=== PATIENT | female | born 1980 | race African-American/Black ===

== ENCOUNTER → 2019-01-22 | Outpatient (CLI) | payer BC ==
[2019-01-22 16:31] LABS: Basophils # (A) 0.1 k/uL (0-0.2); Basophils % (A) 1 %; Eosinophils # (A) 0.1 k/uL (0-0.7); Eosinophils % (A) 1 %; HCT 41.6 % (34.0-46.0); Lymphocytes # (A) 2.8 k/uL (1.0-4.8); Lymphocytes % (A) 22 %; MCH 27.4 pg (25.0-35.0); MCHC 31.2 g/dL (31.0-37.0); MCV 87.6 fL (80.0-100.0); Mean Platelet Volume 7.8; Monocytes # (A) 0.7 k/uL (0-1.0); Monocytes % (A) 6 %; Neutrophils # (A) 8.4 k/uL (1.3-7.7); Neutrophils % (A) 68 %; Platelet Count 291 k/uL (150-450); RBC 4.75 m/uL (3.80-5.40); RDW 14.6 % (11.5-15.5); WBC 12.4 k/uL (3.8-10.6)
[2019-01-22 23:49] LABS: ALT 17 U/L (8-44); AST 19 U/L (13-35); African American GFR (CKD) 128.3 (60.0-200.0); Albumin/Globulin Ratio 1.92 (1.60-3.17); Alkaline Phosphatase 60 U/L (41-126); BUN/Creat Ratio 17.14 Ratio (12.00-20.00); Calcium 9.5 mg/dL (8.7-10.3); Carbon Dioxide 27.1 mmol/L (21.6-31.8); Chloride 104 mmol/L (96-109); Chol/HDL Ratio 2.75; Cholesterol 184 mg/dL (0-200); Globulin 2.5 g/dL (1.6-3.3); Glucose 77 mg/dL (70-110); Potassium 4.1 mmol/L (3.5-5.5); Sodium 140 mmol/L (135-145); Total Bilirubin 0.9 mg/dL (0.3-1.2); Total Protein 7.3 g/dL (6.2-8.2); Triglycerides <50.0 mg/dL (0.0-149.0); VLDL Calculation 9.98 mg/dL (5.00-40.00)
== END | disposition home or self-care (01) ==
LOC: LABWHC1 15:40
PROVIDERS: ATTEND Internal Medicine
DX: E66.01 Morbid (severe) obesity due to excess calories (principal); R53.83 Other fatigue
CPT/HCPCS: 36415; 80053; 80061; 84443; 85025

== ENCOUNTER 2024-06-15 09:07 | Inpatient (IN) | payer OTHER ==
--- NOTE | 2024-06-15 09:48 | ED ---
Female Urogenital HPI - General Chief complaint: Vaginal Bleeding Stated complaint: Abd pain Time Seen by Provider: 06/15/24 09:09 Source: patient, EMS, RN notes reviewed Mode of arrival: EMS Limitations: no limitations - History of Present Illness Initial comments: This is a 44-year-old female who presents to the emergency department for pelvic pain. Patient was transferred to our facility from [facility] for an TALLOW MAKER consult. Patient states that she started developing pelvic pain yesterday. Last menstrual cycle was 06/06 through 06/10 and states that it was otherwise normal. Workup in the emergency department was concerning for a mass versus blood clot around the cervix causing the symptoms and she was transferred here due to a lack of TALLOW MAKER coverage at their facility. She does note nausea and vomiting associated with this as well as some bouts of vaginal bleeding despite her period being over. Additionally, she reports feeling a bulge in her vagina. She had a Pap smear about 2 years ago that she states was normal. Last pelvic exam was about 2 years ago as well. Prior to her visit at their facility today, she did go in yesterday as well. She was discharged home with Zofran, [employer] [place], and Keflex. States that she has been unable to keep down the [place] and when she is able to take it, it is not controlling her pain. Last Menstrual Period: 06/15/24 - Related Data Home Medications Medication Instructions Recorded Confirmed Cephalexin [Keflex] 500 mg PO DIRECTED 06/15/24 06/15/24 HYDROcodone/APAP 5-325MG [[place] 1 tab PO Q8H PRN 06/15/24 06/15/24 5-325] Ondansetron Odt [Zofran Odt] 4 mg PO Q8HR PRN 06/15/24 06/15/24 Allergies Allergy/AdvReac Type Severity Reaction Status Date / Time No Known Allergies Allergy Verified 06/15/24 15:21 Review of Systems ROS Statement: Those systems with pertinent positive or pertinent negative responses have been documented in the HPI. ROS Other: All systems not noted in ROS Statement are negative. Past Medical History Past Medical History: No Reported History History of Any Multi-Drug Resistant Organisms: None Reported Past Surgical History: No Surgical Hx Reported Additional Past Surgical History / Comment(s): Ectopic Past Psychological History: No Psychological Hx Reported Smoking Status: Former smoker Past Alcohol Use History: Rare Past Drug Use History: None Reported General Exam Limitations: no limitations General appearance: alert, in no apparent distress Head exam: Present: atraumatic, normocephalic, normal inspection Respiratory exam: Present: normal lung sounds bilaterally. Absent: respiratory distress, wheezes, rales, rhonchi, stridor Cardiovascular Exam: Present: regular rate, normal rhythm, normal heart sounds. Absent: systolic murmur, diastolic murmur, rubs, gallop, clicks GI/Abdominal exam: Present: soft, tenderness (Lower abdomen), normal bowel sounds. Absent: distended Neurological exam: Present: alert, oriented X3, CN II-XII intact Psychiatric exam: Present: normal affect, normal mood Skin exam: Present: warm, dry, intact, normal color. Absent: rash Course Vital Signs 06/15/24 06/15/24 09:08 12:45 Temperature 98.5 F Pulse Rate 76 83 Respiratory 18 18 Rate Blood Pressure 139/67 137/87 O2 Sat by Pulse 99 100 Oximetry Medical Decision Making - Medical Decision Making This is a 44-year-old female who presents to the emergency department for abdominal pain. Was pt. sent in by a medical professional or institution? @ -[facility] Did you speak to anyone other than the patient for history? @ -No Did you review nursing and triage notes? @ -Yes, and I agree, it is accurate with regards to the patient's symptoms. Were old charts reviewed? @ -Lab work from [facility]: Today: WBC - 22.5, lactic acid - 1.6 Yesterday: WBC - 19.6 Transvaginal ultrasound from yesterday demonstrating an enlarged uterus measuring 13.6 x 5.1 x 6.1 cm. There is a complex mass in the cervix measuring 6.6 x 4.8 x 5.2 cm. Endometrium is thickened at 1.4 cm with fluid in the endometrial canal. -Documentation from yesterday advised that they were unable to visualize the cervix. Today they advised that there was a large fullness in the posterior vagina that appears to be the cervix that is swollen with a scant amount of blood coming from the cervix. The mass is thought to feel fluid-filled as opposed to solid. Differential Diagnosis? @ -Differential Abdominal Pain Women: Appendicitis, Cholecystitis, diverticulosis, ischemic bowel, pancreatitis, hepatitis, UTI, gastroenteritis, AAA, incarcerated hernia, bowel obstruction, constipation, inflammatory bowel, hepatitis, peptic ulcer disease, splenic infarction, perforated viscus, vulvitis, ovarian torsion, PID, kidney stone, placenta abruption, this is not meant to be an all-inclusive list EKG interpreted by me (3pts min.)? @ -Not obtained X-rays interpreted by me (1pt min.)? @ -Not obtained CT interpreted by me (1pt min.)? @ -Not obtained U/S interpreted by me (1pt. min.)? @ -Not obtained What testing was considered but not performed? (CT, X-rays, U/S, labs)? Why? @ -None What meds were considered but not given? Why? @ -None Did you discuss the management of the patient with other professionals? @ -Yes, Dr. Andres, TALLOW MAKER, who advised that no emergent intervention is needed on their part and she could follow-up outpatient. However, if symptoms are not controlled she could be admitted to medicine with them on consult. Dr. Byers accepts the patient for admission to medicine. Did you reconcile home meds? @ -No Was smoking cessation discussed for >3mins.? @ -No Was critical care preformed (if so, how long)? @ -No Were there social determinants of health that impacted care today? How? (Homelessness, low income, unemployed, alcoholism, drug addiction, transportati on, low edu. Level, literacy, decrease access to med. care, chcf, rehab)? @ -No Was there de-escalation of care discussed even if they declined? (Discuss DNR or withdrawal of care, Hospice)? @ -No What co-morbidities impacted this encounter? (DM, HTN, Smoking, COPD, CAD, Cancer, CVA, Hep., AIDS, mental health diagnosis, sleep apnea, morbid obesity)? @ -None Was patient admitted / discharged? @ -Admitted. Lab work demonstrates leukocytosis with a white blood cell count of 25.4. This is increased from the lab work obtained at [facility] earlier today. This is also trending upwards from the lab work she had done at [facility] yesterday. CRP elevated at 7.4. Patient had already been taking [employer] [place] and Zofran at home. However, the [employer] [place] was not controlling her symptoms and she was still having difficulty tolerating p.o. intake despite the Zofran. Pain was only tolerable with IV medication. Given her intractable symptoms, she was admitted to medicine for further management. TALLOW MAKER listed as consult. Patient started on ceftriaxone and Flagyl. Case discussed with ED attending Dr. Hood. Undiagnosed new problem with uncertain prognosis? @ -None Drug Therapy requiring intensive monitoring for toxicity (Heparin, Nitro, Insulin, Cardizem)? @ -None Were any procedures done? @ -None Diagnosis/symptom? @ -Abnormal pelvic ultrasound, cervical mass, intractable pain, leukocytosis Acute, or Chronic, or Acute on Chronic? @ -Acute Uncomplicated (without systemic symptoms) or Complicated (systemic symptoms)? @ -Complicated Side effects of treatment? @ -None Exacerbation, Progression, or Severe Exacerbation] @ -Not applicable Poses a threat to life or bodily function? @ -Yes, patient unable to function with her pain - Lab Data Result diagrams: 06/15/24 10:10 06/15/24 10:10 Lab Results 06/15/24 06/15/24 06/15/24 Range/Units 10:10 10:10 10:10 WBC 25.4 H (3.8-10.6) k/uL RBC 4.29 (3.80-5.40) m/uL Hgb 12.3 (11.4-16.0) gm/dL Hct 37.4 (34.0-46.0) % MCV 87.1 (80.0-100.0) fL MCH 28.6 (25.0-35.0) pg MCHC 32.8 (31.0-37.0) g/dL RDW 14.4 (11.5-15.5) % Plt Count 241 (150-450) k/uL MPV 8.6 Neutrophils % 89 % Lymphocytes % 4 % Monocytes % 5 % Eosinophils % 1 % Basophils % 0 % Neutrophils # 22.5 H (1.3-7.7) k/uL Lymphocytes # 1.1 (1.0-4.8) k/uL Monocytes # 1.2 H (0-1.0) k/uL Eosinophils # 0.3 (0-0.7) k/uL Basophils # 0.1 (0-0.2) k/uL ESR 60 H (0-20) mm/Hr Sodium 134 L (137-145) mmol/L Potassium 3.5 (3.5-5.1) mmol/L Chloride 97 L (98-107) mmol/L Carbon Dioxide 29 (22-30) mmol/L Anion Gap 8 mmol/L BUN 7 (7-17) mg/dL Creatinine 0.53 (0.52-1.04) mg/dL Est GFR (CKD-EPI)AfAm >90 (>60 ml/min/1.73 sqM) Est GFR (CKD-EPI)NonAf >90 (>60 ml/min/1.73 sqM) Glucose 116 H (74-99) mg/dL Plasma Lactic Acid Dinesh 0.8 (0.7-2.0) mmol/L Calcium 8.7 (8.4-10.2) mg/dL Total Bilirubin 1.1 (0.2-1.3) mg/dL AST 18 (14-36) U/L ALT 17 (4-34) U/L Alkaline Phosphatase 59 (38-126) U/L C-Reactive Protein 7.4 H (<1.0) mg/dL Total Protein 7.0 (6.3-8.2) g/dL Albumin 4.1 (3.5-5.0) g/dL HCG, Qual Not Detected - Radiology Data Radiology results: report reviewed, image reviewed Disposition Clinical Impression: Abnormal pelvic ultrasound, Cervical mass, Intractable pain, Leukocytosis Disposition: ADMITTED IP TO THIS HOSP
[2024-06-15 10:17] LABS: Basophils # (A) 0.1 k/uL (0-0.2); Basophils % (A) 0 %; Eosinophils # (A) 0.3 k/uL (0-0.7); Eosinophils % (A) 1 %; HCT 37.4 % (34.0-46.0); HGB 12.3 gm/dL (11.4-16.0); Lymphocytes # (A) 1.1 k/uL (1.0-4.8); Lymphocytes % (A) 4 %; MCH 28.6 pg (25.0-35.0); MCHC 32.8 g/dL (31.0-37.0); MCV 87.1 fL (80.0-100.0); Mean Platelet Volume 8.6; Monocytes # (A) 1.2 k/uL (0-1.0); Monocytes % (A) 5 %; Neutrophils # (A) 22.5 k/uL (1.3-7.7); Neutrophils % (A) 89 %; Platelet Count 241 k/uL (150-450); RBC 4.29 m/uL (3.80-5.40); RDW 14.4 % (11.5-15.5); WBC 25.4 k/uL (3.8-10.6)
[2024-06-15] MEDS: SODIUM CHLORIDE 0.9% 1,000 ML IV STA (10:24)
[2024-06-15] MEDS: ONDANSETRON 4 MG/2 ML VIAL IVP STA (10:25)
[2024-06-15] MEDS: KETOROLAC 15 MG/ML 1 ML VIAL IVP STA ×2 (10:25→12:49)
[2024-06-15] MEDS: HYDROmorphone 1 MG/ML 1 ML SYRINGE IVP STA ×2 (10:25→12:49)
[2024-06-15 10:29] LABS: ALT 17 U/L (4-34); AST 18 U/L (14-36); African American GFR (CKD) >90 (>60 ml/min/1.73 sqM); Albumin 4.1 g/dL (3.5-5.0); Alkaline Phosphatase 59 U/L (38-126); Anion Gap 8 mmol/L; Blood Urea Nitrogen 7 mg/dL (7-17); C Reactive Protein 7.4 mg/dL (<1.0); Calcium 8.7 mg/dL (8.4-10.2); Carbon Dioxide 29 mmol/L (22-30); Chloride 97 mmol/L (98-107); Glucose 116 mg/dL (74-99); Non-African American GFR(CKD) >90 (>60 ml/min/1.73 sqM); Potassium 3.5 mmol/L (3.5-5.1); Sodium 134 mmol/L (137-145); Total Bilirubin 1.1 mg/dL (0.2-1.3)
[2024-06-15 11:17] LABS: HCG,Qualitative Serum Not Detected
[2024-06-15] MEDS ORDERED: HYDROmorphone 1 MG/ML 1 ML SYRINGE IVP PRN (13:09)
[2024-06-15] MEDS ORDERED: NALOXONE 0.4 MG/ML 1 ML VIAL IV PRN (13:09)
[2024-06-15] MEDS ORDERED: HYDROmorphone 0.5 MG/0.5 ML SYRINGE IVP PRN (13:09)
[2024-06-15] MEDS ORDERED: IBUPROFEN 400 MG TAB PO PRN (13:09)
[2024-06-15] MEDS: metroNIDAZOLE 500 MG TAB PO SCH (13:18)
[2024-06-15 13:45] LABS: Erythrocyte Sedimentation Rate 60 mm/Hr (0-20)
--- NOTE | 2024-06-15 16:34 | US ---
EXAMINATION TYPE: US pelvis complete transvag DATE OF EXAM: 06/15/2024 COMPARISON: NONE CLINICAL INDICATION: Female, 44 years old with history of pelvic/cervical mass, pelvic pain; Transfer from [facility]. Pain, bleeding. Hx ectopic with ovary removed- patient doesn't remember which ovary TECHNIQUE: Transvaginal (TV) and Transabdominal (TA) . Transabdominal grayscale sonographic images of the pelvis were acquired. Doppler imaging: Not performed. FINDINGS: Date of LMP: 06/03/2024, EXAM MEASUREMENTS: Uterus: 14.0 x 6.7 x 5.4 cm cm Endometrial Stripe: 1.1 cm 1. Uterus: Anteverted Enlarged in size. Not well seen transvaginally due to penetration. 2. Endometrium: Appears complex extending into cervix. 3. Right Ovary: Not seen 4. Left Ovary: Not seen 5. Bilateral Adnexa: no free fluid 6. Posterior cul-de-sac: no free fluid 7. Cervix- Cervical canal appears enlarged and complex with moving internal echoes. Question large cl ot extending into endometrial canal. IMPRESSION: 1. Complex endometrium and extending into the cervical canal. Possibly old blood products. Clinical correlation advised. 2. Hypoechoic mass possibly represent fibroid. Consider complete evaluation with pelvic MRI with IV contrast. [facility], , 06/15/2024 4:31 PM
[2024-06-15] MEDS: KETOROLAC 15 MG/ML 1 ML VIAL IVP PRN (20:50)
--- NOTE | 2024-06-16 10:53 | P.HPIM ---
History of Present Illness H&P Date: 06/16/24 Rosetta Duron is a 44-year-old female patient who presented with complaints of abnormal bleeding and cervical pelvic pain. Patient initially presented to [facility] and was transferred to [facility] for HAND II CUTTER consult. Patient reports her last menstrual cycle completed 06/06 through 06/10. Patient reports after cycle she started to have cramping with large blood clots. Patient denies any previous cycles like this. Patient does have a past medical history of ectopic and ex-smoker. Transvaginal ultrasound completed showing complex endometrioma next the ending into the cervical canal possibly old blood product hypoechoic mass possibly represent fibroid consider complete evaluation with pelvic MRI. Patient's vitals revealed temp 100.2, heart rate 108, respiratory rate 16, blood pressure 108/64. Lab work completed showing white blood cell 25.4, hemoglobin 12.3, ESR 60 test negative. At this time patient will be admitted HAND II CUTTER consult placed. Will also start patient on antibiotics due to elevated white blood count and febrile. Urine and blood cultures will be ordered. Infectious disease services consulted Review of Systems Please refer to HPI otherwise unremarkable Past Medical History Past Medical History: No Reported History Additional Past Medical History / Comment(s): Lower back pain History of Any Multi-Drug Resistant Organisms: None Reported Past Surgical History: No Surgical Hx Reported Additional Past Surgical History / Comment(s): Ectopic Past Anesthesia/Blood Transfusion Reactions: No Reported Reaction Past Psychological History: No Psychological Hx Reported Smoking Status: Former smoker Past Alcohol Use History: Rare Past Drug Use History: None Reported Medications and Allergies Home Medications Medication Instructions Recorded Confirmed Type Cephalexin [Keflex] 500 mg PO DIRECTED 06/15/24 06/15/24 History HYDROcodone/APAP 5-325MG [[place] 1 tab PO Q8H PRN 06/15/24 06/15/24 History 5-325] Ondansetron Odt [Zofran Odt] 4 mg PO Q8HR PRN 06/15/24 06/15/24 History Allergies Allergy/AdvReac Type Severity Reaction Status Date / Time No Known Allergies Allergy Verified 06/15/24 15:21 Physical Exam Vitals: Vital Signs Temp Pulse Pulse Resp BP BP Pulse Ox 06/16/24 07:59 99.5 F 100 17 105/64 95 06/16/24 01:39 100.2 F H 108 H 16 108/64 98 06/15/24 19:43 99.0 F 69 16 128/68 92 L 06/15/24 17:42 78 18 136/64 99 06/15/24 12:45 83 18 137/87 100 Intake and Output 06/15/24 06/16/24 06/16/24 22:59 06:59 14:59 Other: Voiding Method Toilet # Voids 1 Weight 131.542 kg Head normocephalic Neck supple Lungs clear to auscultation bilaterally no wheezing or crackles Heart regular rate and rhythm S1-S2, no rub or gallop Abdomen is soft nontender nondistended positive bowel sounds no hepatosplenomegaly Extremities no edema Neuro alert and orientated to 3 Results CBC & Chem 7: 06/15/24 10:10 06/15/24 10:10 Labs: Abnormal Lab Results - Last 24 Hours (Table) 06/15/24 Range/Units 10:10 ESR 60 H (0-20) mm/Hr Thrombosis Risk Factor Assmnt - Choose All That Apply Any of the Below Risk Factors Present?: Yes Each Factor Represents 1 point: Age 41-60 years, Obesity (BMI >25) Other Risk Factors: No Other congenital or acquired thrombophilia - If yes, enter type in comment: No Thrombosis Risk Factor Assessment Total Risk Factor Score: 2 Thrombosis Risk Factor Assessment Level: Low Risk Assessment and Plan Assessment: 1. Pelvic pain and abnormal bleeding with possible cervical mass. 2. Leukocytosis 3. History of ectopic 4. Ex-smoker DVT prophylaxis SCDs due to bleeding. GI prophylax Protonix HAND II CUTTER and infectious disease services consulted Patient started on antibiotics Urine and blood cultures ordered Repeat labs ordered Time with Patient: Greater than 30 (Greater than 60% of the total time spent in counseling and coordination of care)
--- NOTE | 2024-06-16 13:53 | P.OBCN ---
History of Present Illness Consult date: 06/16/24 Reason for consult: pelvic pain, other (abnormal US) Chief complaint: vaginal bleeding and pelvic pain History of present illness: 44-year-old -0-1-2 presented to [facility] 2 times for vaginal bleeding and severe pelvic pain. They thought maybe she had a mass or a blood clot in her cervix and sent her home with Keflex and [place]. The [place] was not controlling her pain and she returned to the emergency room where she was transferred to [facility]. I did get another ultrasound here since I did not have the images to look at the other facility. She has complex blood within her endometrium and extending to the level of the cervix. I do believe she has had a blood clot there since her period which was 06/06-06/10 and now it is starting to break up and come out. The smell of the blood is foul and she has a white count of 25 and did have a fever of 100.2. She is currently on Rocephin and Flagyl IV. I would keep the patient on the antibiotics for 24 hours and then take her to the operating room for a D&C hysteroscopy. I discussed with the patient that she does have an enlarged uterus and could have some kind of endometrial polyp, endometritis, endometrial hyperplasia, or endometrial cancer. Review of Systems All systems: negative Constitutional: Denies chills, Denies fever Eyes: denies blurred vision, denies pain Ears, nose, mouth and throat: Denies headache, Denies sore throat Cardiovascular: Denies chest pain, Denies shortness of breath Respiratory: Denies cough Gastrointestinal: Denies abdominal pain, Denies diarrhea, Denies nausea, Denies vomiting Genitourinary: Denies dysuria, Denies hematuria Musculoskeletal: Denies myalgias Integumentary: Denies pruritus, Denies rash Neurological: Denies numbness, Denies weakness Psychiatric: Denies anxiety, Denies depression Endocrine: Denies fatigue, Denies weight change Past Medical History Past Medical History: No Reported History Additional Past Medical History / Comment(s): Lower back pain History of Any Multi-Drug Resistant Organisms: None Reported Past Surgical History: No Surgical Hx Reported Additional Past Surgical History / Comment(s): Ectopic Past Anesthesia/Blood Transfusion Reactions: No Reported Reaction Past Psychological History: No Psychological Hx Reported Smoking Status: Former smoker Past Alcohol Use History: Rare Past Drug Use History: None Reported Medications and Allergies Home Medications Medication Instructions Recorded Confirmed Type Cephalexin [Keflex] 500 mg PO DIRECTED 06/15/24 06/15/24 History HYDROcodone/APAP 5-325MG [[place] 1 tab PO Q8H PRN 06/15/24 06/15/24 History 5-325] Ondansetron Odt [Zofran Odt] 4 mg PO Q8HR PRN 06/15/24 06/15/24 History Allergies Allergy/AdvReac Type Severity Reaction Status Date / Time No Known Allergies Allergy Verified 06/15/24 15:21 Exam Osteopathic Statement: *. No significant issues noted on an osteopathic structural exam other than those noted in the History and Physical/Consult. Vital Signs Temp Pulse Pulse Resp BP BP Pulse Ox 06/16/24 13:19 98.1 F 94 17 100/62 98 06/16/24 07:59 99.5 F 100 17 105/64 95 06/16/24 01:39 100.2 F H 108 H 16 108/64 98 06/15/24 19:43 99.0 F 69 16 128/68 92 L 06/15/24 17:42 78 18 136/64 99 Intake and Output 06/15/24 06/16/24 06/16/24 22:59 06:59 14:59 Other: Voiding Method Toilet # Voids 1 Weight 131.542 kg Heart: Regular rate and rhythm Lungs: Clear to auscultation bilaterally Abdomen: Soft, nontender Extremities: Negative Homans sign Results Result Diagrams: 06/15/24 10:10 06/15/24 10:10 Assessment and Plan (1) Pelvic pain Current Visit: Yes Status: Acute Code(s): R10.2 - PELVIC AND PERINEAL PAIN SNOMED Code(s): 38520907 (2) Abnormal pelvic ultrasound Current Visit: Yes Status: Acute Code(s): R93.89 - ABNORMAL FINDINGS ON DX IMAGING OF OTH BODY STRUCTURES SNOMED Code(s): 305903802 (3) Leukocytosis Current Visit: Yes Status: Acute Code(s): D72.829 - ELEVATED WHITE BLOOD CELL COUNT, UNSPECIFIED SNOMED Code(s): 576779928 (4) Thickened endometrium Current Visit: Yes Status: Acute Code(s): R93.89 - ABNORMAL FINDINGS ON DX IMAGING OF OTH BODY STRUCTURES SNOMED Code(s): 252298393 Plan: 1. N.p.o. after midnight 2. D&C hysteroscopy after a few doses of IV antibiotics.
[2024-06-17 00:43] LABS: Mucus,Urine Many /hpf; RBC,Urine >182 /hpf (0-5); WBC,Urine 45 /hpf (0-5)
[2024-06-17 00:47] LABS: Appearance,Urine Bloody (Clear); Color,Urine Red
--- NOTE | 2024-06-17 08:17 | P.CONS ---
History of Present Illness - Reason for Consult Consult date: 06/16/24 Leukocytosis, pelvic mass Requesting physician: Hellen Byers - Chief Complaint Lower abdominal pain x 1 day - History of Present Illness Patient is a 44-year-old -[place] female with no significant past medical history presenting to the hospital, for evaluation of lower abdominal pain that started the day before presentation to the hospital describing the pain to be sharp moderate intensity without any radiation did have some nausea but no vomiting patient denies having any burning or frequency of urine no diarrhea or constipation and the patient did have some vaginal bleeding with a workup done at [facility] there was concern for mass versus blood clot around the cervix for the patient was transferred to [facility] on presentation to the hospital patient was afebrile she did have 1 low-grade fever 100.2 at 1 AM patient was mildly tachycardic but not hypotensive or hypoxic and no need for supplemental oxygen she did have a white count 25.4 with a left shift creatinine 0.53 urine has been mostly bloody with 45 WBC blood culture has been obtained patient did have a pelvic ultrasound mention intermittent basis complex extending into the cervix no free fluid patient has been started on Rocephin and Flagyl infectious disease was consulted concerning for leukocytosis and pelvic mass Review of Systems Positive point and negatives has been mentioned in the HPI, complete review of systems was performed and all other systems are negative Past Medical History Past Medical History: No Reported History Additional Past Medical History / Comment(s): Lower back pain History of Any Multi-Drug Resistant Organisms: None Reported Past Surgical History: No Surgical Hx Reported Additional Past Surgical History / Comment(s): Ectopic Past Anesthesia/Blood Transfusion Reactions: No Reported Reaction Past Psychological History: No Psychological Hx Reported Smoking Status: Former smoker Past Alcohol Use History: Rare Past Drug Use History: None Reported Medications and Allergies Home Medications Medication Instructions Recorded Confirmed Type Cephalexin [Keflex] 500 mg PO DIRECTED 06/15/24 06/15/24 History HYDROcodone/APAP 5-325MG [[place] 1 tab PO Q8H PRN 06/15/24 06/15/24 History 5-325] Ondansetron Odt [Zofran Odt] 4 mg PO Q8HR PRN 06/15/24 06/15/24 History Allergies Allergy/AdvReac Type Severity Reaction Status Date / Time No Known Allergies Allergy Verified 02/15/25 15:21 Physical Exam Vitals: Vital Signs Temp Pulse Pulse Resp BP BP Pulse Ox 06/16/24 13:19 98.1 F 94 17 100/62 98 06/16/24 07:59 99.5 F 100 17 105/64 95 06/16/24 01:39 100.2 F H 108 H 16 108/64 98 06/15/24 19:43 99.0 F 69 16 128/68 92 L 06/15/24 17:42 78 18 136/64 99 Intake and Output 06/15/24 06/16/24 06/16/24 22:59 06:59 14:59 Other: Voiding Method Toilet # Voids 1 Weight 131.542 kg GENERAL DESCRIPTION: Middle-aged female lying in bed, no distress. No tachypnea or accessory muscle of respiration use. HEENT: Shows Pallor , no scleral icterus. Oral mucous membrane is dry. No pha ryngeal erythema or thrush NECK: Trachea central, no thyromegaly. LUNGS: Unlabored breathing. Clear to auscultation anteriorly. No wheeze or crackle. HEART: S1, S2, regular rate and rhythm. No loud murmur ABDOMEN: Soft, no tenderness , EXTREMITIES: No edema of feet. SKIN: No rash, no masses palpable. NEUROLOGICAL: The patient is awake, alert, oriented x3, mood and affect normal. Results CBC & Chem 7: 06/15/24 10:10 06/15/24 10:10 Assessment and Plan (1) SIRS (systemic inflammatory response syndrome) Current Visit: Yes Status: Acute Code(s): R65.10 - SIRS OF NON-INFECTIOUS ORIGIN W/O ACUTE ORGAN DYSFUNCTION SNOMED Code(s): 399786225 (2) Abnormal pelvic ultrasound Current Visit: Yes Status: Acute Code(s): R93.89 - ABNORMAL FINDINGS ON DX IMAGING OF OTH BODY STRUCTURES SNOMED Code(s): 014868872 (3) Cervical mass Current Visit: Yes Status: Acute Code(s): N88.8 - OTHER SPECIFIED NONINFLAMM ATORY DISORDERS OF CERVIX UTERI SNOMED Code(s): 376508377 (4) Leukocytosis Current Visit: Yes Status: Acute Code(s): D72.829 - ELEVATED WHITE BLOOD CELL COUNT, UNSPECIFIED SNOMED Code(s): 088896831 Plan: 1patient with cirrhosis in this patient who did have low-grade fever tachycardia elevated white count source is pelvic in this patient who has predominantly pelvic pain and there was concern for abnormal pelvic ultrasound possible mass versus hematoma with elevated white count could be reactive or secondary to infectious etiology and likely enteric gram-negative. 2patient will be treated with Rocephin 2 g daily and Flagyl empirically. 3await possible D&C by OB that will help with confirming the diagnosis Question concern answered We will follow on clinical condition and cultures to further adjust medication if needed Thank you for this consultation we will follow the patient along with you Dictation was produced using [employer] dictation software. please excuse any grammatical, word or spelling errors. Time with Patient: Greater than 30
[2024-06-17] MEDS: PANTOPRAZOLE 40 MG TABLET PO SCH (08:41)
[2024-06-17 08:57] LABS: Basophils % (A) 0 %; Eosinophils # (A) 0.1 k/uL (0-0.7); Eosinophils % (A) 1 %; HCT 34.4 % (34.0-46.0); HGB 10.9 gm/dL (11.4-16.0); Hypochromasia Slight; Lymphocytes # (A) 2.4 k/uL (1.0-4.8); Lymphocytes % (A) 14 %; MCHC 31.7 g/dL (31.0-37.0); MCV 88.4 fL (80.0-100.0); Mean Platelet Volume 9.1; Monocytes # (A) 1.3 k/uL (0-1.0); Monocytes % (A) 8 %; Neutrophils # (A) 12.3 k/uL (1.3-7.7); Neutrophils % (A) 74 %; Platelet Count 203 k/uL (150-450); RBC 3.89 m/uL (3.80-5.40); RDW 14.6 % (11.5-15.5); WBC 16.5 k/uL (3.8-10.6)
[2024-06-17 09:07] LABS: ALT 23 U/L (4-34); AST 22 U/L (14-36); African American GFR (CKD) >90 (>60 ml/min/1.73 sqM); Albumin 3.2 g/dL (3.5-5.0); Albumin/Globulin Ratio 1.2; Alkaline Phosphatase 73 U/L (38-126); Anion Gap 7 mmol/L; Blood Urea Nitrogen 10 mg/dL (7-17); Calcium 8.6 mg/dL (8.4-10.2); Carbon Dioxide 30 mmol/L (22-30); Chloride 101 mmol/L (98-107); Globulin 2.7 g/dL; Glucose 100 mg/dL (74-99); Non-African American GFR(CKD) >90 (>60 ml/min/1.73 sqM); Potassium 3.5 mmol/L (3.5-5.1); Sodium 138 mmol/L (137-145); Total Bilirubin 0.8 mg/dL (0.2-1.3); Total Protein 5.9 g/dL (6.3-8.2)
[2024-06-17] MEDS: IV FLUID CONTINUATION 1,000 ML IV ONE (11:09)
[2024-06-17] MEDS: ONDANSETRON 4 MG/2 ML VIAL IVP PRN (11:17)
[2024-06-17] MEDS: DEXAMETHASONE SOD PHOSPHATE 4 MG/ML 1 ML VIAL IVP STA (11:18)
[2024-06-17] MEDS ORDERED: LIDOCAINE 1% INJ 10MG/ML (20 ML MDV) ONE (11:39)
[2024-06-17] MEDS ORDERED: PROPOFOL 10 MG/ML 20 ML VIAL IV ONE (11:39)
[2024-06-17] MEDS ORDERED: SUCCINYLCHOLINE CHLORIDE 200 MG/10 ML VIAL IV ONE (11:39)
[2024-06-17] MEDS ORDERED: MIDAZOLAM 2 MG/2 ML VIAL ONE (11:39)
[2024-06-17] MEDS ORDERED: KETOROLAC 30 MG/ML 1 ML VIAL ONE (11:39)
[2024-06-17] MEDS ORDERED: fentaNYL (PF) 50 MCG/ML 2 ML AMP ONE (11:39)
--- NOTE | 2024-06-17 12:11 | P.OP ---
Date of Procedure: 06/17/24 Preoperative Diagnosis: 1. abnormal US-thickened endometrium 2. pelvic pain Postoperative Diagnosis: same Procedure(s) Performed: D&C Anesthesia: KRISTELA Surgeon: Flaquita Andres Estimated Blood Loss (ml): 4 IV fluids (ml): 500 Urine output (ml): 100 Pathology: other (endometrial currettings) Condition: stable Disposition: floor Operative Findings: uterus sounded to 10 cm. The cervix was dilated to 1cm and had some white nodular tissue on it. Description of Procedure: Taken to the operating room general anesthesia was obtained without difficulty. She is prepped draped normal sterile fashion dorsolithotomy position, legs placed in the Carlos stirrups. Bladder was drained of all urine. Weighted speculum placed in vagina the anterior lip of the cervix was grasped with a single-tooth tenaculum. The cervix appeared to have some nodules and white tissue on it. The cervix was found to be dilated 1 cm. The uterus sounded to 10 cm. Sharp curette was gently used to obtain endometrial curettings. Blood and tissue were removed and sent to pathology. There were no blood clots noted. All instruments were removed from the vagina. Patient tolerated the procedure well. Sponge and instrument counts correct x 2. She was taken to recovery in stable condition.
--- NOTE | 2024-06-17 17:13 | P.PN ---
Subjective Progress Note Date: 06/17/24 Principal diagnosis: Reason for follow-up is leukocytosis/question of endometritis Patient is a 44-year-old -[place] female with no significant past medical history presenting to the hospital, for evaluation of lower abdominal pain along with heavy vaginal bleeding and did have a low-grade fever elevated white count prompted this consultation. Patient is status post D&C did not mention any purulent drainage or bleeding. On today's evaluation that is 06/16/2024, Patient did have resolution of her fever and is afebrile today patient is currently on room air and denies having any shortness of breath, the patient denies any chest pain or cough, the patient denies any nausea vomiting did not have any abdominal pain and no diarrhea. Patient white count is down to 16.5 creatinine 0.61 cultures are currently pending Objective - Vital Signs Vital signs: Vital Signs Temp 98.3 F 06/17/24 07:37 Pulse 71 06/17/24 07:37 Resp 18 06/17/24 07:37 BP 110/65 06/17/24 07:37 Pulse Ox 98 06/17/24 07:37 FiO2 Intake & Output 06/16/24 06/17/24 06/17/24 18:59 06:59 18:59 Intake Total 1080 Balance 1080 Intake: Oral 1080 Other: Voiding Method Toilet Toilet # Voids 3 3 - Exam GENERAL DESCRIPTION: Middle-age female up in bed in no distress RESPIRATORY SYSTEM: Unlabored breathing , decreased breath sounds at bases HEART: S1 S2 regular rate and rhythm , ABDOMEN: Soft , no tenderness EXTREMITIES: No edema feet - Labs CBC & Chem 7: 06/17/24 07:58 06/17/24 07:58 Labs: Abnormal Lab Results - Last 24 Hours (Table) 06/17/24 06/17/24 06/17/24 Range/Units 00:10 07:58 07:58 WBC 16.5 H (3.8-10.6) k/uL Hgb 10.9 L (11.4-16.0) gm/dL Neutrophils # 12.3 H (1.3-7.7) k/uL Monocytes # 1.3 H (0-1.0) k/uL Glucose 100 H (74-99) mg/dL Total Protein 5.9 L (6.3-8.2) g/dL Albumin 3.2 L (3.5-5.0) g/dL Urine Appearance Bloody H (Clear) Urine RBC >182 H (0-5) /hpf Urine WBC 45 H (0-5) /hpf Urine WBC Clumps Many H (None) /hpf Urine Mucus Many H (None) /hpf Microbiology - Last 24 Hours (Table) 06/15/24 17:35 Blood Culture - Preliminary Blood Assessment and Plan (1) SIRS (systemic inflammatory response syndrome) Current Visit: Yes Status: Acute Code(s): R65.10 - SIRS OF NON-INFECTIOUS ORIGIN W/O ACUTE ORGAN DYSFUNCTION SNOMED Code(s): 268190570 (2) Abnormal pelvic ultrasound Current Visit: Yes Status: Acute Code(s): R93.89 - ABNORMAL FINDINGS ON DX IMAGING OF OTH BODY STRUCTURES SNOMED Code(s): 769011378 (3) Cervical mass Current Visit: Yes Status: Acute Code(s): N88.8 - OTHER SPECIFIED NONINFLAMMATORY DISORDERS OF CERVIX UTERI SNOMED Code(s): 513919424 (4) Leukocytosis Current Visit: Yes Status: Acute Code(s): D72.829 - ELEVATED WHITE BLOOD CELL COUNT, UNSPECIFIED SNOMED Code(s): 806550677 Plan: 1patient with cirrhosis in this patient who did have low-grade fever tachycardia elevated white count source is pelvic in this patient who has predominantly pelvic pain and there was concern for abnormal pelvic ultrasound possible mass versus hematoma with elevated white count could be reactive or secondary to infectious etiology and likely enteric gram-negative. 2patient is status post D&C did not mention any purulent drainage or any culture. 3patient did have resolution of fever white count is trending down continue with Rocephin and Flagyl will transition to oral antibiotics on discharge Dictation was produced using [employer] dictation software. please excuse any grammatical, word or spelling errors.
--- NOTE | 2024-06-17 19:46 | P.PN ---
Subjective Progress Note Date: 06/17/24 Rosetta Duron is a 44-year-old female patient who presented with complaints of abnormal bleeding and cervical pelvic pain. Patient initially presented to [facility] and was transferred to [facility] for TIRE RETREADER consult. Patient reports her last menstrual cycle completed 06/06 through 06/10. Patient reports after cycle she started to have cramping with large blood clots. Patient denies any previous cycles like this. Patient does have a past medical history of ectopic and ex-smoker. Transvaginal ultrasound completed showing complex endometrioma next the ending into the cervical canal possibly old blood product hypoechoic mass possibly represent fibroid consider complete evaluation with pelvic MRI. Patient's vitals revealed temp 100.2, heart rate 108, respiratory rate 16, blood pressure 108/64. Lab work completed showing white blood cell 25.4, hemoglobin 12.3, ESR 60 test negative. At this time patient will be admitted TIRE RETREADER consult placed. Will also start patient on antibiotics due to elevated white blood count and febrile. Urine and blood cultures will be ordered. Infectious disease services consulted On 06/17/2024 patient was seen and examined on the medical floor she is alert and oriented x 3 in no apparent distress there is no fever or chills no headache or dizziness no chest pain no shortness of breath no cough no nausea or vomiting no abdominal pain no diarrhea and no urinary symptoms. She underwent D&C this morning. Remains on IV antibiotics awaiting culture results Objective - Vital Signs Vital signs: Vital Signs Temp 97 F L 06/17/24 12:05 Pulse 75 06/17/24 12:45 Resp 14 06/17/24 12:45 BP 131/74 06/17/24 12:45 Pulse Ox 98 06/17/24 12:45 FiO2 Intake & Output 06/16/24 06/17/24 06/17/24 18:59 06:59 18:59 Intake Total 1080 500 Output Total 104 Balance 1080 396 Weight 131.542 kg Intake: IV 500 Oral 1080 Output: Urine 100 Estimated Blood Loss 4 Other: Voiding Method Toilet Toilet # Voids 3 3 - Labs CBC & Chem 7: 06/17/24 07:58 06/17/24 07:58 Labs: Abnormal Lab Results - Last 24 Hours (Table) 06/17/24 06/17/24 06/17/24 Range/Units 00:10 07:58 07:58 WBC 16.5 H (3.8-10.6) k/uL Hgb 10.9 L (11.4-16.0) gm/dL Neutrophils # 12.3 H (1.3-7.7) k/uL Monocytes # 1.3 H (0-1.0) k/uL Glucose 100 H (74-99) mg/dL Total Protein 5.9 L (6.3-8.2) g/dL Albumin 3.2 L (3.5-5.0) g/dL Urine Appearance Bloody H (Clear) Urine RBC >182 H (0-5) /hpf Urine WBC 45 H (0-5) /hpf Urine WBC Clumps Many H (None) /hpf Urine Mucus Many H (None) /hpf Microbiology - Last 24 Hours (Table) 06/15/24 17:35 Blood Culture - Preliminary Blood Assessment and Plan Plan: 1. Pelvic pain and abnormal bleeding with possible cervical mass. 2. Leukocytosis 3. History of ectopic 4. Ex-smoker DVT prophylaxis SCDs due to bleeding. GI prophylax Protonix TIRE RETREADER and infectious disease services consulted Patient started on antibiotics Urine and blood cultures ordered Repeat labs ordered
[2024-06-18 10:25] LABS: Basophils % (A) 0 %; Eosinophils # (A) 0.1 k/uL (0-0.7); Eosinophils % (A) 0 %; HGB 11.9 gm/dL (11.4-16.0); Hypochromasia Slight; Lymphocytes # (A) 3.6 k/uL (1.0-4.8); Lymphocytes % (A) 20 %; MCH 28.5 pg (25.0-35.0); MCHC 32.2 g/dL (31.0-37.0); MCV 88.5 fL (80.0-100.0); Mean Platelet Volume 9.1; Monocytes % (A) 5 %; Neutrophils # (A) 13.1 k/uL (1.3-7.7); Neutrophils % (A) 72 %; Platelet Count 284 k/uL (150-450); RBC 4.18 m/uL (3.80-5.40); RDW 14.6 % (11.5-15.5); WBC 18.2 k/uL (3.8-10.6)
[2024-06-18 10:36] LABS: ALT 24 U/L (4-34); AST 21 U/L (14-36); African American GFR (CKD) >90 (>60 ml/min/1.73 sqM); Albumin 3.8 g/dL (3.5-5.0); Albumin/Globulin Ratio 1.3; Alkaline Phosphatase 78 U/L (38-126); Anion Gap 9 mmol/L; Blood Urea Nitrogen 11 mg/dL (7-17); Calcium 8.8 mg/dL (8.4-10.2); Carbon Dioxide 29 mmol/L (22-30); Chloride 102 mmol/L (98-107); Globulin 2.9 g/dL; Glucose 106 mg/dL (74-99); Non-African American GFR(CKD) >90 (>60 ml/min/1.73 sqM); Potassium 3.9 mmol/L (3.5-5.1); Sodium 140 mmol/L (137-145); Total Bilirubin 0.7 mg/dL (0.2-1.3); Total Protein 6.7 g/dL (6.3-8.2)
--- NOTE | 2024-06-18 12:40 | P.PN ---
Subjective Progress Note Date: 06/18/24 Rosetta Duron is a 44-year-old female patient who presented with complaints of abnormal bleeding and cervical pelvic pain. Patient initially presented to [facility] and was transferred to [facility] for BAT LATHE OPERATOR consult. Patient reports her last menstrual cycle completed 06/06 through 06/10. Patient reports after cycle she started to have cramping with large blood clots. Patient denies any previous cycles like this. Patient does have a past medical history of ectopic and ex-smoker. Transvaginal ultrasound completed showing complex endometrioma next the ending into the cervical canal possibly old blood product hypoechoic mass possibly represent fibroid consider complete evaluation with pelvic MRI. Patient's vitals revealed temp 100.2, heart rate 108, respiratory rate 16, blood pressure 108/64. Lab work completed showing white blood cell 25.4, hemoglobin 12.3, ESR 60 test negative. At this time patient will be admitted BAT LATHE OPERATOR consult placed. Will also start patient on antibiotics due to elevated white blood count and febrile. Urine and blood cultures will be ordered. Infectious disease services consulted On 06/17/2024 patient was seen and examined on the medical floor she is alert and oriented x 3 in no apparent distress there is no fever or chills no headache or dizziness no chest pain no shortness of breath no cough no nausea or vomiting no abdominal pain no diarrhea and no urinary symptoms. She underwent D&C this morning. Remains on IV antibiotics awaiting culture results On 06/18/2024 patient is alert and oriented x 3. White count increasing this a.m. Discussed case with ID. Current vital signs temp 98.5, heart rate 65, respiratory rate 24, blood pressure 98/65 with a pulse ox of 90% on room air. Patient denies chest pain or shortness of breath. Patient denies nausea vomiting or diarrhea. Patient denies any urinary burning frequency Objective - Vital Signs Vital signs: Vital Signs Temp 98.5 F 06/18/24 08:00 Pulse 65 06/18/24 08:00 Resp 24 06/18/24 08:00 BP 98/65 06/18/24 08:00 Pulse Ox 98 06/18/24 08:00 FiO2 Intake & Output 06/17/24 06/18/24 06/18/24 18:59 06:59 18:59 Intake Total 1080 Output Total 104 Balance 976 Weight 131.542 kg Intake: IV 500 Oral 580 Output: Urine 100 Estimated Blood Loss 4 Other: Voiding Method Toilet Toilet # Voids 2 3 - Exam Head normocephalic Neck supple Lungs clear to auscultation bilaterally no wheezing or crackles Heart regular rate and rhythm S1-S2, no rub or gallop Abdomen is soft nontender nondistended positive bowel sounds no hepatosplenomegaly Extremities no edema Neuro alert and orientated to 3 - Labs CBC & Chem 7: 06/18/24 09:32 06/18/24 09:32 Labs: Abnormal Lab Results - Last 24 Hours (Table) 06/18/24 06/18/24 Range/Units 09:32 09:32 WBC 18.2 H (3.8-10.6) k/uL Neutrophils # 13.1 H (1.3-7.7) k/uL Glucose 106 H (74-99) mg/dL Microbiology - Last 24 Hours (Table) 06/15/24 17:35 Blood Culture - Preliminary Blood Assessment and Plan Plan: 1. Pelvic pain and abnormal bleeding with possible cervical mass. Status post D&C 2. Leukocytosis 3. History of ectopic 4. Ex-smoker DVT prophylaxis SCDs due to bleeding. GI prophylax Protonix BAT LATHE OPERATOR and infectious disease services consulted Patient started on antibiotics Urine and blood cultures ordered Repeat labs ordered
--- NOTE | 2024-06-18 16:16 | P.PN ---
Subjective Progress Note Date: 06/18/24 Principal diagnosis: Reason for follow-up is leukocytosis/question of endometritis Patient is a 44-year-old -[place] female with no significant past medical history presenting to the hospital, for evaluation of lower abdominal pain along with heavy vaginal bleeding and did have a low-grade fever elevated white count prompted this consultation. Patient is status post D&C did not mention any purulent drainage or bleeding. On today's evaluation that is 06/18/2024, Patient is afebrile this morning patient denies having any chest pain shortness of breath or cough, the patient is currently on room air, patient denies any abdominal pain no diarrhea no nausea no vomiting has been complaining of mostly cold sore to the lip with the pain associated to it. Patient white count slightly up to 18.2, creatinine 0.55 blood cultures are pending Objective - Vital Signs Vital signs: Vital Signs Temp 98.5 F 06/18/24 08:00 Pulse 65 06/18/24 08:00 Resp 24 06/18/24 08:00 BP 98/65 06/18/24 08:00 Pulse Ox 98 06/18/24 08:00 FiO2 Intake & Output 06/17/24 06/18/24 06/18/24 18:59 06:59 18:59 Intake Total 1080 Output Total 104 Balance 976 Weight 131.542 kg Intake: IV 500 Oral 580 Output: Urine 100 Estimated Blood Loss 4 Other: Voiding Method Toilet Toilet # Voids 2 3 - Exam GENERAL DESCRIPTION: Middle-age female up in bed in no distress RESPIRATORY SYSTEM: Unlabored breathing , decreased breath sounds at bases HEART: S1 S2 regular rate and rhythm , ABDOMEN: Soft , no tenderness EXTREMITIES: No edema feet - Labs CBC & Chem 7: 06/18/24 09:32 06/18/24 09:32 Labs: Abnormal Lab Results - Last 24 Hours (Table) 06/18/24 06/18/24 Range/Units 09:32 09:32 WBC 18.2 H (3.8-10.6) k/uL Neutrophils # 13.1 H (1.3-7.7) k/uL Glucose 106 H (74-99) mg/dL Microbiology - Last 24 Hours (Table) 06/15/24 17:35 Blood Culture - Preliminary Blood Assessment and Plan (1) SIRS (systemic inflammatory response syndrome) Current Visit: Yes Status: Acute Code(s): R65.10 - SIRS OF NON-INFECTIOUS ORIGIN W/O ACUTE ORGAN DYSFUNCTION SNOMED Code(s): 171428484 (2) Abnormal pelvic ultrasound Current Visit: Yes Status: Acute Code(s): R93.89 - ABNORMAL FINDINGS ON DX IMAGING OF OTH BODY STRUCTURES SNOMED Code(s): 605478056 (3) Cervical mass Current Visit: Yes Status: Acute Code(s): N88.8 - OTHER SPECIFIED NONINFLAMMATORY DISORDERS OF CERVIX UTERI SNOMED Code(s): 284808276 (4) Leukocytosis Current Visit: Yes Status: Acute Code(s): D72.829 - ELEVATED WHITE BLOOD CELL COUNT, UNSPECIFIED SNOMED Code(s): 331040795 (5) Cold sore Current Visit: Yes Status: Acute Code(s): B00.1 - HERPESVIRAL VESICULAR DERMATITIS SNOMED Code(s): 8450637 Plan: 1patient with cirrhosis in this patient who did have low-grade fever tachycardia elevated white count source is pelvic in this patient who has predominantly pelvic pain and there was concern for abnormal pelvic ultrasound possible mass versus hematoma with elevated white count could be reactive or secondary to infectious etiology and likely enteric gram-negative. 2patient is status post D&C did not mention any purulent drainage or any culture. 3patient did have resolution of fever however the white count slightly up questionable related to surgery yesterday we will monitor for the 24-hour for now continue with Rocephin and Flagyl discussed with TURN DOWN ATTENDANT for admitting team 4patient with a cold sore we will advise Valtrex 2 g p.o. twice daily x 2 doses Dictation was produced using [employer] dictation software. please excuse any grammatical, word or spelling errors. Time with Patient: Less than 30
[2024-06-18] MEDS: valACYclovir HCL 1,000 MG TABLET PO SCH (18:06)
[2024-06-19 08:45] LABS: Basophils # (A) 0.05 X 10*3/uL (0.00-0.10); Basophils % (A) 0.4 %; Eosinophils # (A) 0.19 X 10*3/uL (0.04-0.35); Eosinophils % (A) 1.5 %; HCT 32.5 % (37.2-46.3); HGB 10.3 g/dL (12.0-15.0); Lymphocytes # (A) 4.43 X 10*3/uL (0.90-5.00); Lymphocytes % (A) 33.9 %; MCH 28.1 pg (27.0-32.0); MCHC 31.7 g/dL (32.0-37.0); MCV 88.6 FL (80.0-97.0); Mean Platelet Volume 11.9 FL (9.5-12.2); Monocytes # (A) 1.48 X 10*3/uL (0.20-1.00); Monocytes % (A) 11.3 %; NRBC Per 100 WBC 0 X 10*3/uL (0.00-0.01); Neutrophils # (A) 6.83 X 10*3/uL (1.80-7.70); Neutrophils % (A) 52.3 %; Platelet Count 274 X 10*3/uL (140-440); RBC 3.67 X 10*6/uL (4.10-5.20); WBC 13.06 X 10*3/uL (4.50-10.00)
[2024-06-19 08:47] LABS: Blood Urea Nitrogen 11.1 mg/dL (9.0-27.0); Calcium 8.4 mg/dL (8.7-10.3); Carbon Dioxide 25.3 mmol/L (21.6-31.8); Chloride 106 mmol/L (96-109); Glucose 105 mg/dL (70-110); Potassium 3.9 mmol/L (3.5-5.5); Sodium 141 mmol/L (135-145)
--- NOTE | 2024-06-19 12:16 | P.PN ---
Subjective Progress Note Date: 06/19/24 Principal diagnosis: Reason for follow-up is leukocytosis/question of endometritis Patient is a 44-year-old -[place] female with no significant past medical history presenting to the hospital, for evaluation of lower abdominal pain along with heavy vaginal bleeding and did have a low-grade fever elevated white count prompted this consultation. Patient is status post D&C did not mention any purulent drainage or bleeding. On today's evaluation that is 06/19/2024,the patient denies any fever or any chills, patient is breathing comfortably on room air, the patient denies chest pain shortness of breath and no significant cough, patient lower abdominal pain has decreased intensity no nausea vomiting or diarrhea. Patient white count is down to 13.06, creatinine 0.6 Objective - Vital Signs Vital signs: Vital Signs Temp 97.6 F 06/19/24 08:00 Pulse 78 06/19/24 08:00 Resp 16 06/19/24 08:00 BP 121/77 06/19/24 08:00 Pulse Ox 100 06/19/24 08:00 FiO2 Intake & Output 06/18/24 06/19/24 06/19/24 18:59 06:59 18:59 Intake Total 1080 Balance 1080 Intake: Oral 1080 Other: Voiding Method Toilet Toilet Toilet # Voids 3 3 - Exam GENERAL DESCRIPTION: Middle-age female up in bed in no distress RESPIRATORY SYSTEM: Unlabored breathing , decreased breath sounds at bases HEART: S1 S2 regular rate and rhythm , ABDOMEN: Soft , no tenderness EXTREMITIES: No edema feet - Labs CBC & Chem 7: 06/19/24 04:07 06/19/24 04:07 Labs: Abnormal Lab Results - Last 24 Hours (Table) 06/18/24 06/19/24 06/19/24 Range/Units 09:32 04:07 04:07 WBC 13.06 H (4.50-10.00) X 10*3/uL RBC 3.67 L (4.10-5.20) X 10*6/uL Hgb 10.3 L (12.0-15.0) g/dL Hct 32.5 L (37.2-46.3) % MCHC 31.7 L (32.0-37.0) g/dL RDW 15.0 H (11.5-14.5) % Immature Gran # 0.08 H (0.00-0.04) X 10*3/uL Monocytes # 1.48 H (0.20-1.00) X 10*3/uL Glucose 106 H (74-99) mg/dL Calcium 8.4 L (8.7-10.3) mg/dL Microbiology - Last 24 Hours (Table) 06/15/24 17:35 Blood Culture - Preliminary Blood Assessment and Plan (1) SIRS (systemic inflammatory response syndrome) Current Visit: Yes Status: Acute Code(s): R65.10 - SIRS OF NON-INFECTIOUS ORIGIN W/O ACUTE ORGAN DYSFUNCTION SNOMED Code(s): 777669332 (2) Abnormal pelvic ultrasound Current Visit: Yes Status: Acute Code(s): R93.89 - ABNORMAL FINDINGS ON DX IMAGING OF OTH BODY STRUCTURES SNOMED Code(s): 784716201 (3) Cervical mass Current Visit: Yes Status: Acute Code(s): N88.8 - OTHER SPECIFIED NONINFLAMMATORY DISORDERS OF CERVIX UTERI SNOMED Code(s): 346988032 (4) Leukocytosis Current Visit: Yes Status: Acute Code(s): D72.829 - ELEVATED WHITE BLOOD CELL COUNT, UNSPECIFIED SNOMED Code(s): 125604169 (5) Cold sore Current Visit: Yes Status: Acute Code(s): B00.1 - HERPESVIRAL VESICULAR DERMATITIS SNOMED Code(s): 5928432 Plan: 1patient with cirrhosis in this patient who did have low-grade fever tachycardia elevated white count source is pelvic in this patient who has predominantly pelvic pain and there was concern for abnormal pelvic ultrasound possible mass versus hematoma with elevated white count could be reactive or secondary to infectious etiology and likely enteric gram-negative. 2patient is status post D&C did not mention any purulent drainage or any culture. 3patient with a cold sore has received Valtrex 2 g p.o. twice daily x 2 doses 4the patient white count is trending down culture has been negative so far currently on Rocephin and Flagyl to finish therapy with oral Ceftin Flagyl x 7 days on discharge Dictation was produced using [employer] dictation software. please excuse any grammatical, word or spelling errors.
--- NOTE | 2024-06-19 17:46 | P.PN ---
Subjective Progress Note Date: 06/19/24 Rosetta Duron is a 44-year-old female patient who presented with complaints of abnormal bleeding and cervical pelvic pain. Patient initially presented to [facility] and was transferred to [facility] for FOIL WRAPPER consult. Patient reports her last menstrual cycle completed 06/06 through 06/10. Patient reports after cycle she started to have cramping with large blood clots. Patient denies any previous cycles like this. Patient does have a past medical history of ectopic and ex-smoker. Transvaginal ultrasound completed showing complex endometrioma next the ending into the cervical canal possibly old blood product hypoechoic mass possibly represent fibroid consider complete evaluation with pelvic MRI. Patient's vitals revealed temp 100.2, heart rate 108, respiratory rate 16, blood pressure 108/64. Lab work completed showing white blood cell 25.4, hemoglobin 12.3, ESR 60 test negative. At this time patient will be admitted FOIL WRAPPER consult placed. Will also start patient on antibiotics due to elevated white blood count and febrile. Urine and blood cultures will be ordered. Infectious disease services consulted On 06/17/2024 patient was seen and examined on the medical floor she is alert and oriented x 3 in no apparent distress there is no fever or chills no headache or dizziness no chest pain no shortness of breath no cough no nausea or vomiting no abdominal pain no diarrhea and no urinary symptoms. She underwent D&C this morning. Remains on IV antibiotics awaiting culture results On 06/18/2024 patient is alert and oriented x 3. White count increasing this a.m. Discussed case with ID. Current vital signs temp 98.5, heart rate 65, respiratory rate 24, blood pressure 98/65 with a pulse ox of 90% on room air. Patient denies chest pain or shortness of breath. Patient denies nausea vomiting or diarrhea. Patient denies any urinary burning frequency On 06/19/2024 patient was seen and examined on the medical floor she is alert and oriented x 3 in no apparent distress she is complaining of mild abdominal discomfort and worsening vaginal bleeding today otherwise she denies any complaints there is no fever or chills no headache or dizziness no chest pain no shortness of breath no cough no nausea or vomiting no diarrhea no blood in the stools no burning with urination no frequency or urgency and no hematuria. Patient remains on IV antibiotic white blood count is improving will recheck in a.m.. Objective - Vital Signs Vital signs: Vital Signs Temp 98.5 F 06/19/24 14:00 Pulse 73 06/19/24 14:00 Resp 18 06/19/24 14:00 BP 131/75 06/19/24 14:00 Pulse Ox 99 06/19/24 14:00 FiO2 Intake & Output 06/18/24 06/19/24 06/19/24 18:59 06:59 18:59 Intake Total 1080 Balance 1080 Intake: Oral 1080 Other: Voiding Method Toilet Toilet Toilet # Voids 3 3 - Exam Head normocephalic Neck supple Lungs clear to auscultation bilaterally no wheezing or crackles Heart regular rate and rhythm S1-S2, no rub or gallop Abdomen is soft nontender nondistended positive bowel sounds no hepatosplenomegaly Extremities no edema Neuro alert and orientated to 3 - Labs CBC & Chem 7: 06/19/24 04:07 06/19/24 04:07 Labs: Abnormal Lab Results - Last 24 Hours (Table) 06/19/24 06/19/24 Range/Units 04:07 04:07 WBC 13.06 H (4.50-10.00) X 10*3/uL RBC 3.67 L (4.10-5.20) X 10*6/uL Hgb 10.3 L (12.0-15.0) g/dL Hct 32.5 L (37.2-46.3) % MCHC 31.7 L (32.0-37.0) g/dL RDW 15.0 H (11.5-14.5) % Immature Gran # 0.08 H (0.00-0.04) X 10*3/uL Monocytes # 1.48 H (0.20-1.00) X 10*3/uL Calcium 8.4 L (8.7-10.3) mg/dL Microbiology - Last 24 Hours (Table) 06/15/24 17:35 Blood Culture - Preliminary Blood Assessment and Plan Plan: 1. Pelvic pain and abnormal bleeding with possible cervical mass. Status post D&C 2. Leukocytosis 3. History of ectopic 4. Ex-smoker DVT prophylaxis SCDs due to bleeding. GI prophylax Protonix FOIL WRAPPER and infectious disease services consulted Patient started on antibiotics Urine and blood cultures ordered Repeat labs ordered
[2024-06-20 10:13] LABS: Basophils # (A) 0.1 k/uL (0-0.2); Basophils % (A) 1 %; Eosinophils # (A) 0.3 k/uL (0-0.7); Eosinophils % (A) 2 %; HCT 36.9 % (34.0-46.0); HGB 11.9 gm/dL (11.4-16.0); Hypochromasia Slight; Lymphocytes # (A) 3.7 k/uL (1.0-4.8); Lymphocytes % (A) 26 %; MCH 28.4 pg (25.0-35.0); MCHC 32.3 g/dL (31.0-37.0); Mean Platelet Volume 8.4; Monocytes # (A) 1.1 k/uL (0-1.0); Monocytes % (A) 8 %; Neutrophils # (A) 8.5 k/uL (1.3-7.7); Neutrophils % (A) 60 %; Platelet Count 338 k/uL (150-450); RBC 4.19 m/uL (3.80-5.40); RDW 14.6 % (11.5-15.5); WBC 14.1 k/uL (3.8-10.6)
--- NOTE | 2024-06-20 10:25 | P.PN ---
Subjective Progress Note Date: 06/20/24 Rosetta Duron is a 44-year-old female patient who presented with complaints of abnormal bleeding and cervical pelvic pain. Patient initially presented to [facility] and was transferred to [facility] for CLIENT APPLICATION SUPPORT SPECIALIST consult. Patient reports her last menstrual cycle completed 06/06 through 06/10. Patient reports after cycle she started to have cramping with large blood clots. Patient denies any previous cycles like this. Patient does have a past medical history of ectopic and ex-smoker. Transvaginal ultrasound completed showing complex endometrioma next the ending into the cervical canal possibly old blood product hypoechoic mass possibly represent fibroid consider complete evaluation with pelvic MRI. Patient's vitals revealed temp 100.2, heart rate 108, respiratory rate 16, blood pressure 108/64. Lab work completed showing white blood cell 25.4, hemoglobin 12.3, ESR 60 test negative. At this time patient will be admitted CLIENT APPLICATION SUPPORT SPECIALIST consult placed. Will also start patient on antibiotics due to elevated white blood count and febrile. Urine and blood cultures will be ordered. Infectious disease services consulted On 06/17/2024 patient was seen and examined on the medical floor she is alert and oriented x 3 in no apparent distress there is no fever or chills no headache or dizziness no chest pain no shortness of breath no cough no nausea or vomiting no abdominal pain no diarrhea and no urinary symptoms. She underwent D&C this morning. Remains on IV antibiotics awaiting culture results On 06/18/2024 patient is alert and oriented x 3. White count increasing this a.m. Discussed case with ID. Current vital signs temp 98.5, heart rate 65, respiratory rate 24, blood pressure 98/65 with a pulse ox of 90% on room air. Patient denies chest pain or shortness of breath. Patient denies nausea vomiting or diarrhea. Patient denies any urinary burning frequency On 06/19/2024 patient was seen and examined on the medical floor she is alert and oriented x 3 in no apparent distress she is complaining of mild abdominal discomfort and worsening vaginal bleeding today otherwise she denies any complaints there is no fever or chills no headache or dizziness no chest pain no shortness of breath no cough no nausea or vomiting no diarrhea no blood in the stools no burning with urination no frequency or urgency and no hematuria. Patient remains on IV antibiotic white blood count is improving will recheck in a.m.. On 06/20/2024 patient is alert and oriented x 3. Patient reports improvement with vaginal bleeding and cramping today. Repeat labs have been ordered awaiting white blood cell count. Possible discharge in the next 24 to 48 hours. Infectious disease services are following. Denies chest pain or shortness of breath. Patient denies nausea vomiting or diarrhea. Patient denies any urinary burning or frequency Objective - Vital Signs Vital signs: Vital Signs Temp 98.9 F 06/20/24 07:15 Pulse 78 06/20/24 07:15 Resp 16 06/20/24 07:15 BP 112/74 06/20/24 07:15 Pulse Ox 99 06/20/24 07:15 FiO2 Intake & Output 06/19/24 06/20/24 06/20/24 18:59 06:59 18:59 Intake Total 1198 Balance 1198 Intake: Oral 1198 Other: Voiding Method Toilet Toilet Toilet # Voids 2 3 - Exam Head normocephalic Neck supple Lungs clear to auscultation bilaterally no wheezing or crackles Heart regular rate and rhythm S1-S2, no rub or gallop Abdomen is soft nontender nondistended positive bowel sounds no hepatosplenomegaly Extremities no edema Neuro alert and orientated to 3 - Labs CBC & Chem 7: 06/20/24 09:54 06/19/24 04:07 Labs: Abnormal Lab Results - Last 24 Hours (Table) 06/20/24 Range/Units 09:54 WBC 14.1 H (3.8-10.6) k/uL Neutrophils # 8.5 H (1.3-7.7) k/uL Monocytes # 1.1 H (0-1.0) k/uL Assessment and Plan Plan: 1. Pelvic pain and abnormal bleeding with possible cervical mass. Status post D&C 2. Leukocytosis 3. History of ectopic 4. Ex-smoker DVT prophylaxis SCDs due to bleeding. GI prophylax Protonix CLIENT APPLICATION SUPPORT SPECIALIST and infectious disease services consulted Patient started on antibiotics Urine and blood cultures ordered Repeat labs ordered
--- NOTE | 2024-06-20 14:31 | P.PN ---
Subjective Progress Note Date: 06/20/24 Principal diagnosis: Reason for follow-up is leukocytosis/question of endometritis Patient is a 44-year-old -Greenland[place] female with no significant past medical history presenting to the hospital, for evaluation of lower abdominal pain along with heavy vaginal bleeding and did have a low-grade fever elevated white count prompted this consultation. Patient is status post D&C did not mention any purulent drainage or bleeding. On today's evaluation that is 06/20/2024,the patient remains to be afebrile, patient is on room air not requiring supplemental oxygen and denies any shortness of breath no chest pain or cough.Patient denies having any nausea or vomiting, lower abdominal pain has decreased intensity and no diarrhea. The patient white count is 14.1 no BMP was done today culture have been negative so far Objective - Vital Signs Vital signs: Vital Signs Temp 98.9 F 06/20/24 07:15 Pulse 78 06/20/24 07:15 Resp 16 06/20/24 07:15 BP 112/74 06/20/24 07:15 Pulse Ox 99 06/20/24 07:15 FiO2 Intake & Output 06/19/24 06/20/24 06/20/24 18:59 06:59 18:59 Intake Total 1198 Balance 1198 Intake: Oral 1198 Other: Voiding Method Toilet Toilet Toilet # Voids 2 3 - Exam GENERAL DESCRIPTION: Middle-age female up in bed in no distress RESPIRATORY SYSTEM: Unlabored breathing , decreased breath sounds at bases HEART: S1 S2 regular rate and rhythm , ABDOMEN: Soft , no tenderness EXTREMITIES: No edema feet - Labs CBC & Chem 7: 06/20/24 09:54 06/19/24 04:07 Labs: Abnormal Lab Results - Last 24 Hours (Table) 06/20/24 Range/Units 09:54 WBC 14.1 H (3.8-10.6) k/uL Neutrophils # 8.5 H (1.3-7.7) k/uL Monocytes # 1.1 H (0-1.0) k/uL Assessment and Plan (1) SIRS (systemic inflammatory response syndrome) Current Visit: Yes Status: Acute Code(s): R65.10 - SIRS OF NON-INFECTIOUS ORIGIN W/O ACUTE ORGAN DYSFUNCTION SNOMED Code(s): 290692803 (2) Abnormal pelvic ultrasound Current Visit: Yes Status: Acute Code(s): R93.89 - ABNORMAL FINDINGS ON DX IMAGING OF OTH BODY STRUCTURES SNOMED Code(s): 964478318 (3) Cervical mass Current Visit: Yes Status: Acute Code(s): N88.8 - OTHER SPECIFIED NONINFLAMMATORY DISORDERS OF CERVIX UTERI SNOMED Code(s): 727407945 (4) Leukocytosis Current Visit: Yes Status: Acute Code(s): D72.829 - ELEVATED WHITE BLOOD CELL COUNT, UNSPECIFIED SNOMED Code(s): 584807305 (5) Cold sore Current Visit: Yes Status: Acute Code(s): B00.1 - HERPESVIRAL VESICULAR DERMATITIS SNOMED Code(s): 2211200 Plan: 1patient with cirrhosis in this patient who did have low-grade fever tachycardia elevated white count source is pelvic in this patient who has predominantly pelvic pain and there was concern for abnormal pelvic ultrasound possible mass versus hematoma with elevated white count could be reactive or secondary to infectious etiology and likely enteric gram-negative. 2patient is status post D&C did not mention any purulent drainage or any culture. 3patient with a cold sore has received Valtrex 2 g p.o. twice daily x 2 doses 4the patient white count is slightly up today but no evidence of any worsening infection, to continue on Rocephin and Flagyl to finish therapy with oral Ceftin Flagyl x 7 days on discharge Dictation was produced using [employer] dictation software. please excuse any grammatical, word or spelling errors. Time with Patient: Less than 30
[2024-06-21] MEDS: ACETAMINOPHEN TAB 325 MG TAB PO PRN (08:20)
[2024-06-21 10:45] LABS: HCT 33.3 % (37.2-46.3); HGB 10.7 g/dL (12.0-15.0); MCH 27.9 pg (27.0-32.0); MCHC 32.1 g/dL (32.0-37.0); MCV 86.9 FL (80.0-97.0); Mean Platelet Volume 11.8 FL (9.5-12.2); NRBC Per 100 WBC 0 X 10*3/uL (0.00-0.01); Platelet Count 326 X 10*3/uL (140-440); RBC 3.83 X 10*6/uL (4.10-5.20); RDW 15.3 % (11.5-14.5); WBC 15.74 X 10*3/uL (4.50-10.00)
[2024-06-21 10:56] LABS: ALT 27 U/L (8-44); AST 32 U/L (13-35); Albumin 3.6 g/dL (3.8-4.9); Albumin/Globulin Ratio 1.38 Ratio (1.60-3.17); Alkaline Phosphatase 65 U/L (41-126); BUN/Creat Ratio 12.67 Ratio (12.00-20.00); Blood Urea Nitrogen 7.6 mg/dL (9.0-27.0); Calcium 8.9 mg/dL (8.7-10.3); Carbon Dioxide 26.1 mmol/L (21.6-31.8); Chloride 102 mmol/L (96-109); Globulin 2.6 g/dL (1.6-3.3); Glucose 104 mg/dL (70-110); Potassium 4.5 mmol/L (3.5-5.5); Sodium 137 mmol/L (135-145); Total Bilirubin <0.2 mg/dL (0.3-1.2); Total Protein 6.2 g/dL (6.2-8.2)
[2024-06-21 12:30] LABS: Basophils # (A) 0.06 X 10*3/uL (0.00-0.10); Basophils % (A) 0.4 %; Eosinophils # (A) 0.26 X 10*3/uL (0.04-0.35); Eosinophils % (A) 1.7 %; Lymphocytes # (A) 4.01 X 10*3/uL (0.90-5.00); Lymphocytes % (A) 25.5 %; Monocytes # (A) 1.71 X 10*3/uL (0.20-1.00); Monocytes % (A) 10.9 %; Neutrophils # (A) 9.43 X 10*3/uL (1.80-7.70); Neutrophils % (A) 59.8 %
--- NOTE | 2024-06-21 12:33 | P.PN ---
Subjective Progress Note Date: 06/21/24 Principal diagnosis: Reason for follow-up is leukocytosis/question of endometritis Patient is a 44-year-old -[place] female with no significant past medical history presenting to the hospital, for evaluation of lower abdominal pain along with heavy vaginal bleeding and did have a low-grade fever elevated white count prompted this consultation. Patient is status post D&C did not mention any purulent drainage or bleeding. On today's evaluation that is 06/21/2024, the patient continues to be afebrile, the patient is on room air and breathing comfortably, the Pt denies having any chest pain or cough, the patient denies having any abdominal pain no vomiting or any diarrhea. Patient white count is up to 15.74, creatinine 0.6 Objective - Vital Signs Vital signs: Vital Signs Temp 99 F 06/21/24 08:04 Pulse 79 06/21/24 08:04 Resp 16 06/21/24 08:04 BP 115/69 06/21/24 08:04 Pulse Ox 99 06/21/24 08:04 FiO2 Intake & Output 06/20/24 06/21/24 06/21/24 18:59 06:59 18:59 Intake Total 1560 480 Balance 1560 480 Intake: Oral 1560 480 Other: Voiding Method Toilet Toilet # Voids 5 3 # Bowel Movements 1 - Labs CBC & Chem 7: 06/21/24 04:20 06/21/24 04:20 Labs: Abnormal Lab Results - Last 24 Hours (Table) 06/21/24 Range/Units 04:20 WBC 15.74 H (4.50-10.00) X 10*3/uL RBC 3.83 L (4.10-5.20) X 10*6/uL Hgb 10.7 L (12.0-15.0) g/dL Hct 33.3 L (37.2-46.3) % RDW 15.3 H (11.5-14.5) % Microbiology - Last 24 Hours (Table) 06/15/24 17:35 Blood Culture - Final Blood Assessment and Plan (1) SIRS (systemic inflammatory response syndrome) Current Visit: Yes Status: Acute Code(s): R65.10 - SIRS OF NON-INFECTIOUS ORIGIN W/O ACUTE ORGAN DYSFUNCTION SNOMED Code(s): 524171758 (2) Abnormal pelvic ultrasound Current Visit: Yes Status: Acute Code(s): R93.89 - ABNORMAL FINDINGS ON DX IMAGING OF OTH BODY STRUCTURES SNOMED Code(s): 820219917 (3) Cervical mass Current Visit: Yes Status: Acute Code(s): N88.8 - OTHER SPECIFIED NONINFLAMMATORY DISORDERS OF CERVIX UTERI SNOMED Code(s): 622397114 (4) Leukocytosis Current Visit: Yes Status: Acute Code(s): D72.829 - ELEVATED WHITE BLOOD CELL COUNT, UNSPECIFIED SNOMED Code(s): 786343509 (5) Cold sore Current Visit: Yes Status: Acute Code(s): B00.1 - HERPESVIRAL VESICULAR DERMATITIS SNOMED Code(s): 1067611 Plan: 1patient with cirrhosis in this patient who did have low-grade fever tachyc ardia elevated white count source is pelvic in this patient who has predominantly pelvic pain and there was concern for abnormal pelvic ultrasound possible mass versus hematoma with elevated white count could be reactive or secondary to infectious etiology and likely enteric gram-negative. 2patient is status post D&C did not mention any purulent drainage or any culture. 3patient with a cold sore has received Valtrex 2 g p.o. twice daily x 2 doses 4the patient white count is trending up we will start the patient on oral Diflucan and see response if the white count did not come down with the Diflucan addition we will repeat a pelvic CT continue with Rocephin and Flagyl repeat his CBC with a.m. lab Dictation was produced using [employer] dictation software. please excuse any grammatical, word or spelling errors. Time with Patient: Less than 30
[2024-06-21 12:51] VITALS: BMI 46.7
[2024-06-21] MEDS: FLUCONAZOLE 100 MG TAB PO ONE (12:59)
--- NOTE | 2024-06-21 13:59 | P.PN ---
Subjective Progress Note Date: 06/21/24 Rosetta Duron is a 44-year-old female patient who presented with complaints of abnormal bleeding and cervical pelvic pain. Patient initially presented to [facility] and was transferred to [facility] for LEAD IOS DEVELOPER consult. Patient reports her last menstrual cycle completed 06/06 through 06/10. Patient reports after cycle she started to have cramping with large blood clots. Patient denies any previous cycles like this. Patient does have a past medical history of ectopic and ex-smoker. Transvaginal ultrasound completed showing complex endometrioma next the ending into the cervical canal possibly old blood product hypoechoic mass possibly represent fibroid consider complete evaluation with pelvic MRI. Patient's vitals revealed temp 100.2, heart rate 108, respiratory rate 16, blood pressure 108/64. Lab work completed showing white blood cell 25.4, hemoglobin 12.3, ESR 60 test negative. At this time patient will be admitted LEAD IOS DEVELOPER consult placed. Will also start patient on antibiotics due to elevated white blood count and febrile. Urine and blood cultures will be ordered. Infectious disease services consulted On 06/17/2024 patient was seen and examined on the medical floor she is alert and oriented x 3 in no apparent distress there is no fever or chills no headache or dizziness no chest pain no shortness of breath no cough no nausea or vomiting no abdominal pain no diarrhea and no urinary symptoms. She underwent D&C this morning. Remains on IV antibiotics awaiting culture results On 06/18/2024 patient is alert and oriented x 3. White count increasing this a.m. Discussed case with ID. Current vital signs temp 98.5, heart rate 65, respiratory rate 24, blood pressure 98/65 with a pulse ox of 90% on room air. Patient denies chest pain or shortness of breath. Patient denies nausea vomiting or diarrhea. Patient denies any urinary burning frequency On 06/19/2024 patient was seen and examined on the medical floor she is alert and oriented x 3 in no apparent distress she is complaining of mild abdominal discomfort and worsening vaginal bleeding today otherwise she denies any complaints there is no fever or chills no headache or dizziness no chest pain no shortness of breath no cough no nausea or vomiting no diarrhea no blood in the stools no burning with urination no frequency or urgency and no hematuria. Patient remains on IV antibiotic white blood count is improving will recheck in a.m.. On 06/20/2024 patient is alert and oriented x 3. Patient reports improvement with vaginal bleeding and cramping today. Repeat labs have been ordered awaiting white blood cell count. Possible discharge in the next 24 to 48 hours. Infectious disease services are following. Denies chest pain or shortness of breath. Patient denies nausea vomiting or diarrhea. Patient denies any urinary burning or frequency On 06/21/2024 patient was seen and examined on the medical floor she is alert and oriented x 3 in no apparent distress there is no fever or chills no headache or dizziness no chest pain no shortness of breath no cough no nausea or vomiting she still has some lower abdominal discomfort no diarrhea no burning with urination no frequency or urgency and no hematuria. At this time white blood count is still increasing, infectious diseases recommending repeat CT scan of the pelvis and addition of Diflucan, will recheck labs in a.m. Objective - Vital Signs Vital signs: Vital Signs Temp 98.6 F 06/21/24 12:36 Pulse 77 06/21/24 12:36 Resp 16 06/21/24 12:36 BP 106/57 06/21/24 12:36 Pulse Ox 99 06/21/24 12:36 FiO2 Intake & Output 06/20/24 06/21/24 06/21/24 18:59 06:59 18:59 Intake Total 1560 480 Balance 1560 480 Weight 131.542 kg Intake: Oral 1560 480 Other: Voiding Method Toilet Toilet Toilet # Voids 5 3 # Bowel Movements 1 - Exam Head normocephalic Neck supple Lungs clear to auscultation bilaterally no wheezing or crackles Heart regular rate and rhythm S1-S2, no rub or gallop Abdomen is soft nontender nondistended positive bowel sounds no hepatosplenomegaly Extremities no edema Neuro alert and orientated to 3 - Labs CBC & Chem 7: 06/21/24 04:20 06/21/24 04:20 Labs: Abnormal Lab Results - Last 24 Hours (Table) 06/21/24 06/21/24 Range/Units 04:20 04:20 WBC 15.74 H (4.50-10.00) X 10*3/uL RBC 3.83 L (4.10-5.20) X 10*6/uL Hgb 10.7 L (12.0-15.0) g/dL Hct 33.3 L (37.2-46.3) % RDW 15.3 H (11.5-14.5) % Immature Gran # 0.27 H (0.00-0.04) X 10*3/uL Neutrophils # 9.43 H (1.80-7.70) X 10*3/uL Monocytes # 1.71 H (0.20-1.00) X 10*3/uL BUN 7.6 L (9.0-27.0) mg/dL Total Bilirubin <0.2 L (0.3-1.2) mg/dL Albumin 3.6 L (3.8-4.9) g/dL Albumin/Globulin Ratio 1.38 L (1.60-3.17) Ratio Microbiology - Last 24 Hours (Table) 06/15/24 17:35 Blood Culture - Final Blood Assessment and Plan Plan: 1. Pelvic pain and abnormal bleeding with possible cervical mass. Status post D&C 2. Leukocytosis 3. History of ectopic 4. Ex-smoker DVT prophylaxis SCDs due to bleeding. GI prophylax Protonix LEAD IOS DEVELOPER and infectious disease services consulted Patient started on antibiotics Urine and blood cultures ordered Repeat labs ordered
[2024-06-21] MEDS: IOPAMIDOL CONTRAST (ORAL USE) VIAL PO PRN (16:50)
--- NOTE | 2024-06-21 19:12 | CT ---
EXAMINATION TYPE: CT pelvis w con DATE OF EXAM: 06/21/2024 6:43 PM COMPARISON: None. CLINICAL INDICATION: Female, 44 years old with history of leukocytosis, Leukocytosis. TECHNIQUE: Axial images were obtained from above the diaphragm to the pubic rami in the axial plane a t 5 mm thick sections. Reconstructed images are reviewed on the computer in the coronal plane. CONTRAST: 100ml mL of Isovue 300. Study performed with Oral Contrast DLP: 1843.2 mGycm, Automated exposure control for dose reduction was used. FINDINGS: CT PELVIS: Loops of bowel within the abdomen and pelvis are normal. Scattered diverticuli are evident. No adjac ent inflammatory changes to suggest acute diverticulitis. There are loops of bowel which are incomp letely distended or lack oral contrast limiting their evaluation. Appendix: Normal as visualized. Urinary bladder: Normal. Genitourinary structures: Uterus appears normal. Adnexa are unremarkable. Osseous structures: No suspicious lytic or sclerotic lesions. No acute fractures evident. Symphysis p ubis is normal. Sacroiliac joints and vacuum joint space phenomenon compatible with degenerative castrejon ges. Lymphadenopathy: Couple of small inguinal lymph nodes are present. IMPRESSION: 1. Unremarkable pelvis [facility], , 06/21/2024 7:10 PM
[2024-06-22 07:30] VITALS: RESP 16
[2024-06-22 09:57] LABS: Basophils # (A) 0.04 X 10*3/uL (0.00-0.10); Basophils % (A) 0.3 %; Eosinophils # (A) 0.32 X 10*3/uL (0.04-0.35); Eosinophils % (A) 2.4 %; HCT 34.3 % (37.2-46.3); HGB 11.1 g/dL (12.0-15.0); Lymphocytes # (A) 3.05 X 10*3/uL (0.90-5.00); Lymphocytes % (A) 22.5 %; MCH 27.8 pg (27.0-32.0); MCHC 32.4 g/dL (32.0-37.0); MCV 85.8 FL (80.0-97.0); Mean Platelet Volume 11.3 FL (9.5-12.2); Monocytes # (A) 1.56 X 10*3/uL (0.20-1.00); Monocytes % (A) 11.5 %; NRBC Per 100 WBC 0 X 10*3/uL (0.00-0.01); Neutrophils # (A) 8.38 X 10*3/uL (1.80-7.70); Neutrophils % (A) 61.9 %; Platelet Count 343 X 10*3/uL (140-440); RDW 15.2 % (11.5-14.5); WBC 13.54 X 10*3/uL (4.50-10.00)
[2024-06-22] MEDS: FLUCONAZOLE 100 MG TAB PO SCH (09:58)
[2024-06-22 10:11] LABS: ALT 28 U/L (8-44); AST 34 U/L (13-35); Albumin 3.5 g/dL (3.8-4.9); Albumin/Globulin Ratio 1.35 Ratio (1.60-3.17); Alkaline Phosphatase 60 U/L (41-126); BUN/Creat Ratio 12.33 Ratio (12.00-20.00); Blood Urea Nitrogen 7.4 mg/dL (9.0-27.0); Calcium 8.8 mg/dL (8.7-10.3); Carbon Dioxide 26.4 mmol/L (21.6-31.8); Chloride 102 mmol/L (96-109); Globulin 2.6 g/dL (1.6-3.3); Glucose 101 mg/dL (70-110); Potassium 4.7 mmol/L (3.5-5.5); Sodium 138 mmol/L (135-145); Total Bilirubin 0.2 mg/dL (0.3-1.2); Total Protein 6.1 g/dL (6.2-8.2)
[2024-06-22 12:25] VITALS: BP 145/63; PULSE 67; TEMP 98.2
--- NOTE | 2024-06-22 12:27 | P.PN ---
Subjective Progress Note Date: 06/22/24 Principal diagnosis: Reason for follow-up is leukocytosis/question of endometritis Patient is a 44-year-old -[place] Islander female with no significant past medical history presenting to the hospital, for evaluation of lower abdominal pain along with heavy vaginal bleeding and did have a low-grade fever elevated white count prompted this consultation. Patient is status post D&C did not mention any purulent drainage or bleeding. On today's evaluation that is 06/22/2024, patient did not have any fever and denies any chills, patient is breathing comfortably on room air, patient with no chest pain or cough patient did not have any abdominal pain nausea vomiting or any loose stools mention feeling better. The patient white count is 13.5 follow-up creatinine 0.6 blood culture have been negative Objective - Vital Signs Vital signs: Vital Signs Temp 98.6 F 06/22/24 07:03 Pulse 78 06/22/24 07:03 Resp 16 06/22/24 07:03 BP 103/63 06/22/24 07:03 Pulse Ox 100 06/22/24 07:03 FiO2 Intake & Output 06/21/24 06/22/24 06/22/24 18:59 06:59 18:59 Intake Total 1560 1320 240 Balance 1560 1320 240 Weight 131.542 kg Intake: Oral 1560 1320 240 Other: Voiding Method Toilet Toilet Toilet # Voids 5 3 # Bowel Movements 1 - Exam GENERAL DESCRIPTION: Middle-age female up in bed in no distress RESPIRATORY SYSTEM: Unlabored breathing , decreased breath sounds at bases HEART: S1 S2 regular rate and rhythm , ABDOMEN: Soft , no tenderness EXTREMITIES: No edema feet - Labs CBC & Chem 7: 06/22/24 05:19 06/22/24 05:19 Labs: Abnormal Lab Results - Last 24 Hours (Table) 06/21/24 06/22/24 06/22/24 Range/Units 04:20 05:19 05:19 WBC 13.54 H (4.50-10.00) X 10*3/uL RBC 4.00 L (4.10-5.20) X 10*6/uL Hgb 11.1 L (12.0-15.0) g/dL Hct 34.3 L (37.2-46.3) % RDW 15.2 H (11.5-14.5) % Immature Gran # 0.27 H 0.19 H (0.00-0.04) X 10*3/uL Neutrophils # 9.43 H 8.38 H (1.80-7.70) X 10*3/uL Monocytes # 1.71 H 1.56 H (0.20-1.00) X 10*3/uL BUN 7.4 L (9.0-27.0) mg/dL Total Bilirubin 0.2 L (0.3-1.2) mg/dL C-Reactive Protein 2.10 H (0.00-0.80) mg/dL Total Protein 6.1 L (6.2-8.2) g/dL Albumin 3.5 L (3.8-4.9) g/dL Albumin/Globulin Ratio 1.35 L (1.60-3.17) Ratio Assessment and Plan (1) SIRS (systemic inflammatory response syndrome) Current Visit: Yes Status: Acute Code(s): R65.10 - SIRS OF NON-INFECTIOUS ORIGIN W/O ACUTE ORGAN DYSFUNCTION SNOMED Code(s): 909341359 (2) Abnormal pelvic ultrasound Current Visit: Yes Status: Acute Code(s): R93.89 - ABNORMAL FINDINGS ON DX IMAGING OF OTH BODY STRUCTURES SNOMED Code(s): 575223979 (3) Cervical mass Current Visit: Yes Status: Acute Code(s): N88.8 - OTHER SPECIFIED NONINFLAMMATORY DISORDERS OF CERVIX UTERI SNOMED Code(s): 146882390 (4) Leukocytosis Current Visit: Yes Status: Acute Code(s): D72.829 - ELEVATED WHITE BLOOD CELL COUNT, UNSPECIFIED SNOMED Code(s): 631874278 (5) Cold sore Current Visit: Yes Status: Acute Code(s): B00.1 - HERPESVIRAL VESICULAR DERMATITIS SNOMED Code(s): 6292620 Plan: 1patient with cirrhosis in this patient who did have low-grade fever tachycardia elevated white count source is pelvic in this patient who has predominantly pelvic pain and there was concern for abnormal pelvic ultrasound possible mass versus hematoma with elevated white count could be reactive or secondary to infectious etiology and likely enteric gram-negative. 2patient is status post D&C did not mention any purulent drainage or any culture. 3patient with a cold sore has received Valtrex 2 g p.o. twice daily x 2 doses 4the patient white count is trending down after addition of Diflucan yesterday plan is to continue with the Diflucan along with Rocephin and Flagyl finishing therapy with a short course of Ceftin Flagyl and Diflucan Dictation was produced using [employer] dictation software. please excuse any grammatical, word or spelling errors.
--- NOTE | 2024-06-22 13:51 | P.DS ---
Providers Date of admission: 06/15/24 13:09 Expected date of discharge: 06/22/24 Attending physician: Hellen Byers Consults: 06/15/24 13:09 Consult Physician Urgent Consulting Provider: Flaquita Andres Consult Reason/Comments: Cervical mass, abnormal ultrasound Do you want consulting provider notified?: Already Contacted 06/16/24 10:08 Consult Physician Routine Consulting Provider: Rachel Elise Consult Reason/Comments: leukocytosis, pelvic mass Do you want consulting provider notified?: Yes Primary care physician: Hellen Byers [facility] Course: Diagnosis on discharge: 1. Pelvic pain and abnormal bleeding with possible cervical mass. Status post D&C 2. Leukocytosis 3. History of ectopic 4. Ex-smoker 5. Herpes simplex eruption Hospital course: Rosetta Duron is a 44-year-old female patient who presented with complaints of abnormal bleeding and cervical pelvic pain. Patient initially presented to [facility] and was transferred to [facility] for [facility] consult. Patient reports her last menstrual cycle completed 06/06 through 06/10. Patient reports after cycle she started to have cramping with large blood clots. Patient denies any previous cycles like this. Patient does have a past medical history of ectopic and ex-smoker. Transvaginal ultrasound completed showing complex endometrioma next the ending into the cervical canal possibly old blood product hypoechoic mass possibly represent fibroid consider complete evaluation with pelvic MRI. Patient's vitals revealed temp 100.2, heart rate 108, respiratory rate 16, blood pressure 108/64. Lab work completed showing white blood cell 25.4, hemoglobin 12.3, ESR 60 test negative. At this time patient will be admitted [employer] consult placed. Will also start patient on antibiotics due to elevated white blood count and febrile. Urine and blood cultures will be ordered. Infectious disease services consulted On 06/17/2024 patient was seen and examined on the medical floor she is alert and oriented x 3 in no apparent distress there is no fever or chills no headache or dizziness no chest pain no shortness of breath no cough no nausea or vomiting no abdominal pain no diarrhea and no urinary symptoms. She underwent D&C this morning. Remains on IV antibiotics awaiting culture results On 06/18/2024 patient is alert and oriented x 3. White count increasing this a.m. Discussed case with ID. Current vital signs temp 98.5, heart rate 65, respiratory rate 24, blood pressure 98/65 with a pulse ox of 90% on room air. Patient denies chest pain or shortness of breath. Patient denies nausea vomiting or diarrhea. Patient denies any urinary burning frequency On 06/19/2024 patient was seen and examined on the medical floor she is alert and oriented x 3 in no apparent distress she is complaining of mild abdominal discomfort and worsening vaginal bleeding today otherwise she denies any complaints there is no fever or chills no headache or dizziness no chest pain no shortness of breath no cough no nausea or vomiting no diarrhea no blood in the stools no burning with urination no frequency or urgency and no hematuria. Patient remains on IV antibiotic white blood count is improving will recheck in a.m.. On 06/20/2024 patient is alert and oriented x 3. Patient reports improvement with vaginal bleeding and cramping today. Repeat labs have been ordered awaiting white blood cell count. Possible discharge in the next 24 to 48 hours. Infectious disease services are following. Denies chest pain or shortness of breath. Patient denies nausea vomiting or diarrhea. Patient denies any urinary burning or frequency On 06/21/2024 patient was seen and examined on the medical floor she is alert and oriented x 3 in no apparent distress there is no fever or chills no headache or dizziness no chest pain no shortness of breath no cough no nausea or vomiting she still has some lower abdominal discomfort no diarrhea no burning with urination no frequency or urgency and no hematuria. At this time white blood count is still increasing, infectious diseases recommending repeat CT scan of the pelvis and addition of Diflucan, will recheck labs in a.m. On 06/22/2024 patient was seen and examined on the medical floor she is alert and oriented x 3 in no apparent distress there is no fever or chills no headache or dizziness no chest pain no shortness of breath no cough no nausea or vomiting no abdominal pain no diarrhea and no urinary symptoms CT scan of the pelvis was reviewed with patient no acute abnormality. Patient still has leukocytosis but has improved since yesterday white blood count is down to 13.54, case was discussed with infectious disease and patient was cleared for discharge with recommendation to continue on Ceftin, Flagyl, and Diflucan for 1 week patient will be followed in our office in the next 2 to 3 days Plan - Discharge Summary Discharge Rx Participant: No New Discharge Prescriptions: New cefuroxime axetiL [Ceftin] 500 mg PO BID 7 Days #14 tab Fluconazole [Diflucan] 100 mg PO DAILY 7 Days #7 tab metroNIDAZOLE [Flagyl] 500 mg PO BID 7 Days #21 tab Discontinued Ondansetron Odt [Zofran Odt] 4 mg PO Q8HR PRN PRN Reason: Nausea Cephalexin [Keflex] 500 mg PO DIRECTED HYDROcodone/APAP 5-325MG [Bracey 5-325] 1 tab PO Q8H PRN PRN Reason: Pain Discharge Medication List Fluconazole [Diflucan] 100 mg PO DAILY 7 Days #7 tab 06/22/24 [Rx] cefuroxime axetiL [Ceftin] 500 mg PO BID 7 Days #14 tab 06/22/24 [Rx] metroNIDAZOLE [Flagyl] 500 mg PO BID 7 Days #21 tab 06/22/24 [Rx] Follow up Appointment(s)/Referral(s): Hellen Byers MD [Primary Care Provider] - 1-2 days
== END 2024-06-22 15:09 | disposition home or self-care (01) | DRG 988 ==
LOC: SUPCPDRO 09:07 → EC 09:07 → 5NMEDONC 13:08 → OBSVTOIN 13:09 → 5NMEDONC 17:03
PROVIDERS: ADMIT Internal Medicine; ATTEND Internal Medicine
PROC: 0UDB8ZX Extraction of Endometrium, Via Natural or Artificial Opening Endoscopic, Diagnostic (ICD-10-PCS; principal; 2024-06-17 10:00)
DX: R19.09 Other intra-abdominal and pelvic swelling, mass and lump (principal); R65.10 Systemic inflammatory response syndrome (SIRS) of non-infectious origin without acute organ dysfunction; B00.1 Herpesviral vesicular dermatitis; D72.829 Elevated white blood cell count, unspecified; N93.9 Abnormal uterine and vaginal bleeding, unspecified; Z87.891 Personal history of nicotine dependence; Z87.59 Personal history of other complications of pregnancy, childbirth and the puerperium; R93.89 Abnormal findings on diagnostic imaging of other specified body structures; R00.0 Tachycardia, unspecified
CPT/HCPCS: 36415; 72193; 76830; 76856; 80048; 80053; 81001; 83605; 84703; 85025; 85652; 86140; 87040; 88305; 96361; 96365; 96375; 96376; 99285

== ENCOUNTER → 2024-09-09 | Outpatient (CLI) | payer BC ==
--- NOTE | 2024-09-09 15:55 | US ---
EXAMINATION TYPE: US venous doppler duplex LE RT DATE OF EXAM: 09/09/2024 3:48 PM COMPARISON: NONE CLINICAL INDICATION: Female, 44 years old with history of RIGHT M79.661 PAIN IN RIGHT LOWER LEG R22.4 1 LOCAL; rt leg swelling/pain, no hx of DVT, no blood thinners, Pain TECHNIQUE: The lower extremity deep venous system is examined utilizing real time linear array sonog sharon with graded compression, color doppler sonography, and spectral doppler. SIDE PERFORMED: Right FINDINGS: VESSELS IMAGED: Common Femoral Vein Deep Femoral Vein Greater Saphenous Vein * Femoral Vein Popliteal Vein Small Saphenous Vein * Proximal Calf Veins (* superficial vessels) Central Processing Technician notes: Slightly limited exam due to pt body habitus & edema Right Leg: appears negative for DVT, Color Doppler imaging shows patency of the vessels. Spectral wa veforms are within normal limits. IMPRESSION: Some exam limitations due to body habitus and some scattered mild soft tissue swelling. No evidence f or DVT within the right lower extremity imaged from the groin into the calf. [facility], , 09/09/2024 3:53 PM
== END | disposition home or self-care (01) ==
LOC: RADUSWWP 15:29
PROVIDERS: ATTEND Internal Medicine
DX: M79.89 Other specified soft tissue disorders (principal); R22.41 Localized swelling, mass and lump, right lower limb